=== PATIENT | male | born 1985 | race Caucasian/White ===

== ENCOUNTER 2020-10-18 17:15 | Outpatient (CLI) | payer BC, SELFPAY ==
[2020-10-18 18:20] LABS: SARS-CoV-2 RNA PCR Positive (Negative)
== END 2020-10-18 17:16 | disposition home or self-care (01) ==
LOC: CHSLAB 17:19
PROVIDERS: PCP Internal Medicine Geriatric Medicine; Visit Provider Internal Medicine Geriatric Medicine
DX: U07.1 COVID-19 (principal)
CPT/HCPCS: C9803; U0003; U0005